=== PATIENT | male | born 1970 | race Caucasian/White ===

== ENCOUNTER → 2020-02-02 10:12 | Outpatient (BNVA) | payer MEDICAID, SELFPAY | PROVIDERS: PCP Family Medicine; Referring Provider Family Medicine; Visit Provider Orthopaedic Surgery | DX: M75.02 Adhesive capsulitis of left shoulder (principal) | CPT/HCPCS: 20610; 99214; J1100 ==

== ENCOUNTER 2022-03-12 09:09 | Outpatient (REF) | payer MEDICAID, SELFPAY ==
--- NOTE | ~2022-03-12 | XR_ITS ---
EXAMINATION: XR LUMBOSACRAL SPINE WITH OBLIQUES CLINICAL INFORMATION: Pain COMPARISON: None TECHNIQUE: AP, both oblique, and lateral views of the lumbar spine. Lateral view of the lumbosacral junction. FINDINGS: There may be a transitional vertebral body segment. Bone alignment is normal. No fracture or dislocation. Normal disc spaces. Lumbar spine facet arthritis XR/XR lumbar spine 4V min IMPRESSION: Lower lumbar spine facet arthritis.
--- NOTE | ~2022-03-12 | XR_ITS ---
EXAMINATION: BILATERAL SHOULDER X-RAY CLINICAL INFORMATION: Bilateral shoulder pain COMPARISON: None TECHNIQUE: 4 views of each shoulder FINDINGS: Bone alignment is normal. No fracture or dislocation. Joint spaces. Normal soft tissues. XR/XR shoulder LT min 2V IMPRESSION: Unremarkable exam.
--- NOTE | ~2022-03-12 | XR_ITS ---
EXAMINATION: BILATERAL SHOULDER X-RAY CLINICAL INFORMATION: Bilateral shoulder pain COMPARISON: None TECHNIQUE: 4 views of each shoulder FINDINGS: Bone alignment is normal. No fracture or dislocation. Joint spaces. Normal soft tissues. XR/XR shoulder RT min 2V IMPRESSION: Unremarkable exam.
[2022-03-12 09:53] LABS: Appearance Urine Clear; Color Urine Yellow; Glucose Urine UA >=1000 mg/dL (Negative); Leukocyte Esterase Urine Negative (Negative); Nitrite Urine Negative (Negative); PH 5.5 (5.0-9.0); Specific Gravity - Urine >= 1.030 (1.005-1.025); UMIC TRIGGER UA YES; Urine Blood Negative (Negative); Urine Ketones Trace mg/dL (Negative); Urine Protein Negative (Neg-Trace)
[2022-03-12 09:59] LABS: Bacteria Urine None Seen (None Seen); Hyaline Casts Urine 0-2 /LPF (0-2); RBC Urine 0-2 /HPF (0-2); Squamous Epithelial Cell Urine 0-2 /HPF (0-2); WBC Urine 0-5 /HPF (0-5)
[2022-03-12 10:28] LABS: Prostate Specific Antigen 0.76 ng/mL (<0.05-4.0)
== END 2022-03-12 09:10 | disposition home or self-care (01) ==
LOC: HO.LAB 09:09
PROVIDERS: PCP Internal Medicine; Visit Provider Internal Medicine
DX: Z12.5 Encounter for screening for malignant neoplasm of prostate (principal); R32 Unspecified urinary incontinence; M25.512 Pain in left shoulder; M54.41 Lumbago with sciatica, right side; M25.511 Pain in right shoulder
CPT/HCPCS: 36415; 72110; 73030; 81001; 84153; 87086

== ENCOUNTER 2023-03-01 12:34 | Outpatient (REF) | payer MEDICAID, SELFPAY ==
[2023-03-01 14:21] LABS: MANUAL DIFF FLAG NO
[2023-03-01 14:29] LABS: Basophils Percent Auto 0.6 % (0-2); Eosinophils Absolute Auto 0.3 X10*3/uL (0.0-0.4); Eosinophils Percent Auto 4.2 % (0-4); Hematocrit 47.2 % (42.0-52.0); Hemoglobin 15.7 g/dl (14.0-18.0); Imm Gran Abs Auto 0.01 X10*3/uL (0.00-0.03); Imm Gran Pct Auto 0.1 % (0.0-0.4); Lymphocytes Absolute Auto 2.8 X10*3/uL (1.2-4.9); Lymphocytes Percent Auto 39.9 % (20-40); Mean Corpuscular HGB Conc 33.3 g/dl (31.0-36.0); Mean Corpuscular Hemoglobin 28.1 pg (27.0-33.0); Mean Corpuscular Volume 84.6 fL (80.0-98.0); Mean Platelet Volume 10.4 fL (9.4-12.4); Monocytes Absolute Auto 0.4 X10*3/uL (0.1-1.2); Monocytes Percent Auto 5.5 % (2-11); Neutrophils Absolute Auto 3.5 x10*3/uL (2.0-8.3); Neutrophils Percent Auto 49.7 % (45-73); Platelet Count 214 X10*3/uL (160-400); Red Blood Count 5.58 X10*6/uL (4.60-5.80); Red Cell Distribution Width 12.8 % (11.0-16.0); White Blood Count 7.1 X10*3/uL (4.8-10.8)
[2023-03-01 14:38] LABS: Estimated Average Glucose 137 mg/dL; Hemoglobin A1c % 6.4 % (<6.0)
[2023-03-01 14:50] LABS: Alanine Aminotransferase 28 U/L (0-40); Albumin Level 4.6 g/dL (3.5-5.0); Alkaline Phosphatase 84 U/L (39-117); Anion Gap 11 (12-20); Aspartate Amino Transferase 23 U/L (5-37); Bilirubin Total 0.6 mg/dL (0.0-1.0); Blood Urea Nitrogen 13 mg/dL (9-16); Calcium 9.5 mg/dL (8.4-10.2); Carbon Dioxide 30 mmol/L (22-29); Chloride 103 mmol/L (96-108); Cholesterol 210 mg/dL (<200); Estimated Glomerular Filt Rate > 60; Glucose Fasting 111 mg/dL (60-99); HDL Cholesterol 41 mg/dL (>40); LDL Cholesterol Calculated 135 mg/dL (<100); Potassium 4.1 mmol/L (3.3-5.1); Sodium 140 mmol/L (135-145); Total Protein 7.3 g/dL (6.5-8.0); Triglycerides 172 mg/dL (<150)
[2023-03-01 15:07] LABS: TSH reflex Free T4 0.85 uIU/mL (0.32-4.0)
[2023-03-01 15:10] LABS: Erythrocyte Sedimentation Rate 3 MM/HR (0-15)
[2023-03-02 05:53] LABS: ~HepC Num1 0.05 S/CO (0.00-0.79); ~Hepatitis C Antibody Nonreactive (Nonreactive)
[2023-03-03 02:09] LABS: Lyme Abs Screen <0.90 index
[2023-03-04 16:12] LABS: HIV RNA PCR Qn Copies Not Detected Copies/mL; HIV RNA PCR Qn Log Copies Not Detected Log cps/mL
== END 2023-03-01 12:35 | disposition home or self-care (01) ==
LOC: HO.CHCLDS 12:34
PROVIDERS: Visit Provider Internal Medicine
DX: E11.9 Type 2 diabetes mellitus without complications (principal)
CPT/HCPCS: 36415; 80053; 80061; 83036; 84443; 85025; 85652; 86140; 86617; 86618; 86803; 87536; 87900

== ENCOUNTER 2023-05-02 05:23 | Emergency (ER) | payer MEDICAID, SELFPAY ==
[2023-05-02 05:34] VITALS: BP 139/89; BP 142/96; PULSE 73; PULSE 88; RESP 18; TEMP 36.6; O2SAT 100; O2SAT 97; BMI 35.4
--- NOTE | 2023-05-02 05:39 | ED.OVERDOSE ---
HPI - Overdose General Stated Complaint: Overdose Time Seen by Provider: 05/02/23 05:39 Source: patient and EMS Mode of arrival: EMS Limitations: no limitations History of Present Illness HPI Narrative: 52-year-old male history of heroin abuse found on the ground by his mom unresponsive, received 8 mg intranasal Narcan by the police department patient responded after, admitted to use 1 bag of heroin with his friend, patient stated that he has been sober for 1 year and today is his 1st use after a year. Patient now is awake, declined any SI or HI. Related Data Home Medications Medication Instructions Recorded Confirmed aripiprazole 15 mg tablet 15 mg PO DAILY 06/04/22 clonidine HCl 0.1 mg tablet 0.1 mg PO 06/04/22 divalproex 500 mg tablet,delayed 500 mg PO BEDTIME 06/04/22 release multivitamin 1 tab PO QAM 06/04/22 perphenazine 4 mg tablet 4 mg PO 06/04/22 Allergies Allergy/AdvReac Type Severity Reaction Status Date / Time No Known Allergies Allergy Verified 05/02/23 05:31 [No Known Allergies*] Review of Systems Review of Systems: All other systems are reviewed and are negative Constitutional: Reports as per HPI and Reports no additional constitutional complaints Eyes: Reports as per HPI and Reports no additional eye complaints Reports system reviewed and no additional complaints, except as documented Cardiovascular: Reports as per HPI and Reports no additional cardiovascular complaints Respiratory: Reports as per HPI and Reports no additional respiratory complaints Gastrointestinal: Reports as per HPI and Reports no additional gastrointestinal complaints Genitourinary: Reports no additional female genitourinary complaints Musculoskeletal: Reports no additional musculoskeletal complaints Skin/Breast: Reports system reviewed and no additional complaints, except as docu Psychiatric: Reports no additional psychiatric complaints Endocrine: Reports no additional endocrine complaints Hematologic/Lymphatic: Reports no additional hematologic/lymphatic complaints Allergic/Immunologic: Reports no additional allergic/immunologic complaints Reports system reviewed and no additional complaints, except as documented and Reports Abnormal speech present PMFSH Past Medical History Onset Date is defined in the Problem List Problems that require an onset date and time if occurred within 24 hrs of arrival to the ED Aortic Dissection and Rupture; Neurologic impairment; Cardiopulmonary Arrest; Endotracheal Intubation; Insertion or Replacement of Mechanical Circulatory Assist Device Medical History Adhesive capsulitis of left shoulder Family History Family History Father No problems noted. Paternal Aunt No problems noted. Physical Exam Vital Signs: Vital Signs: Vital signs have been reviewed and appear to be correct. Blood pressure elevated. Heart rate normal. Respiratory rate normal. Temperature normal. Oxygen saturation normal. Appearance: Alert. Oriented X3. No acute distress. Head: Normal external exam. Normocephalic. Atraumatic. No [place] signs noted. No raccoon eyes noted Eyes: PERRLA. EOMI. Conjunctiva and sclera normal. Eyelids normal. ENT: TM's Normal. Pharynx normal. Uvula midline. Moist mucous membranes. No trismus noted. No drooling noted. No muffled voice noted. Neck: Normal inspection. Neck supple. FROM. No adenopathy. Thyroid Normal. No meningeal signs. No neck mass noted. CVS: Normal heart rate and rhythm. Heart sound normal. No murmurs noted. Pulses normal throughout. Respiratory: No respiratory distress. Painless inspiration. Breath sounds normal. No wheezes/rales/rhonchi noted. Chest nontender. No accessory muscle usage noted or decreased air movement noted. Abdomen: Soft and nontender. Bowel sounds normal in all 4 quadrants. No distention noted. No organomegaly noted. No visible injury noted. Back: No CVA tenderness. Full range of motion noted. Skin: Skin warm and dry. Normal skin color. Normal skin turgor. No rashes/lesions/lacerations noted. Extremities: No lower extremity edema. Extremities exhibit normal range of motion. Extremities nontender. Neuro: Oriented X 3. Cranial nerve exam: II-XII are grossly intact No motor deficit. No sensory deficit. Reflexes normal. Course Reevaluation(s) Reevaluation #1: Admitted to sniffing heroin at 02:00 patient was found unresponsive by his mom was given 8 mg of Narcan intranasally in the emergency department patient is awake complaining of headache will observe and monitor until he is fully sober. Sign out to Dr. Hurst. Time: 05:41 Medical Decision Making Differential Diagnosis Differential Diagnoses: The differential diagnosis associated with the presentation includes ( Heroin overdose, SI, respiratory depression.) Admission/Observation Consideration of admission/observation: Escalation of care including admission/observation considered Discharge Plan Discharge Clinical Impression: Accidental heroin overdose Patient Disposition: Still a Patient Instructions: Polysubstance Abuse (ED) Prescriptions: No Action clonidine HCl 0.1 mg tablet 0.1 mg PO multivitamin Tablet 1 tab PO QAM divalproex 500 mg tablet,delayed release (DR/EC) 500 mg PO BEDTIME perphenazine 4 mg tablet 4 mg PO aripiprazole 15 mg tablet 15 mg PO DAILY
--- NOTE | 2023-05-02 06:31 | PC.NURSE ---
Pt A&Ox3, calm and cooperative, denies SI/HI. Pt changed over by security, belongings in decon.
[2023-05-02 07:26] VITALS: BP 129/89; PULSE 73; RESP 16; O2SAT 97
--- NOTE | 2023-05-02 07:53 | PC.NURSE ---
awake, alert and oriented with even and unlabored respirations. complaining of headache and chest pain - stating his brother performed cpr on him. provided with water and crackers. medicated per the MAR, call cowart within reach.
[2023-05-02 10:17] VITALS: BP 129/79; PULSE 75; RESP 18; TEMP 36.9; O2SAT 98
--- NOTE | 2023-05-02 12:29 | HO.SUDE ---
Met with pt in ED5 after Addiction Medicine consult placed for accidental overdose. Pt had been BIBA from home, calm and cooperative. Had used 1/2 bag heroin, [place], and was found unresponsive. PD reported 8 mg Narcan was administered. Pt denies SI/HI. Pt laying in bed, awake, alert, easily engages in conversation, sister at bedside. Pt reports headache, denies withdrawal symptoms. Pt reports he had been in recovery for years when he was at his mom's last night and decided to use what he believed to be cocaine, IN. Pt reports he was feeling down and wanted to numb himself. Pt reports hx cocaine IN/INH, has used heroin in the past but reports it was never his substance of choice. Pt states it tasted like cocaine, I went to bed and the next thing I know I am in the hospital. Pt denies hx overdose. Educated pt on drug supply/presence of fentanyl. Pt reports he has a therapist and psychiatrist through [facility] whom he enjoys working with. Discussed recovery supports/options, pt is interested in medications for StUD. Provided pt with [facility] information. Pt to call Wednesday morning to schedule intake appointment. Pt denies other questions or concerns for t/w.
== END 2023-05-02 10:46 | disposition home or self-care (01) ==
PROVIDERS: Emergency Provider Emergency Medicine; PCP Internal Medicine
DX: T40.1X4A Poisoning by heroin, undetermined, initial encounter (principal); R40.4 Transient alteration of awareness; Y92.9 Unspecified place or not applicable
CPT/HCPCS: 82947; 99285

== ENCOUNTER 2024-01-05 12:35 | Outpatient (REF) | payer MEDICAID, SELFPAY ==
[2024-01-05 13:47] LABS: MANUAL DIFF FLAG NO
[2024-01-05 14:04] LABS: Basophils Percent Auto 0.5 % (0-2); Eosinophils Absolute Auto 0.5 X10*3/uL (0.0-0.4); Eosinophils Percent Auto 5.7 % (0-4); Hematocrit 49.7 % (42.0-52.0); Hemoglobin 16.8 g/dl (14.0-18.0); Imm Gran Abs Auto 0.02 X10*3/uL (0.00-0.03); Imm Gran Pct Auto 0.2 % (0.0-0.4); Lymphocytes Percent Auto 34.7 % (20-40); Mean Corpuscular HGB Conc 33.8 g/dl (31.0-36.0); Mean Corpuscular Hemoglobin 28.6 pg (27.0-33.0); Mean Corpuscular Volume 84.7 fL (80.0-98.0); Mean Platelet Volume 10.3 fL (9.4-12.4); Monocytes Absolute Auto 0.5 X10*3/uL (0.1-1.2); Monocytes Percent Auto 5.5 % (2-11); Neutrophils Absolute Auto 4.6 x10*3/uL (2.0-8.3); Neutrophils Percent Auto 53.4 % (45-73); Platelet Count 250 X10*3/uL (160-400); Red Blood Count 5.87 X10*6/uL (4.60-5.80); Red Cell Distribution Width 12.6 % (11.0-16.0); White Blood Count 8.7 X10*3/uL (4.8-10.8)
[2024-01-05 15:01] LABS: Microalbum/Creatinine Ratio Ur 10.5 ug/mg cr (<30)
[2024-01-05 15:05] LABS: Alanine Aminotransferase 65 U/L (0-40); Albumin Level 4.8 g/dL (3.5-5.0); Alkaline Phosphatase 102 U/L (39-117); Anion Gap 14 (12-20); Aspartate Amino Transferase 32 U/L (5-37); Bilirubin Total 0.5 mg/dL (0.0-1.0); Blood Urea Nitrogen 16 mg/dL (9-16); Calcium 9.9 mg/dL (8.4-10.2); Carbon Dioxide 27 mmol/L (22-29); Chloride 104 mmol/L (96-108); Cholesterol 262 mg/dL (<200); Estimated Glomerular Filt Rate > 60; Glucose Random 174 mg/dL (60-115); HDL Cholesterol 40 mg/dL (>40); LDL Cholesterol Calculated 168 mg/dL (<100); Potassium 4.2 mmol/L (3.3-5.1); Sodium 141 mmol/L (135-145); Total Protein 7.9 g/dL (6.5-8.0); Triglycerides 272 mg/dL (<150)
== END 2024-01-05 12:36 | disposition home or self-care (01) ==
LOC: HO.CHCLDS 12:35
PROVIDERS: Visit Provider Internal Medicine
DX: E11.9 Type 2 diabetes mellitus without complications (principal)
CPT/HCPCS: 36415; 80053; 80061; 82043; 82570; 85025